=== PATIENT | male | born 1995 | race Caucasian/White ===

== ENCOUNTER 2023-07-02 04:50 | Emergency (ER) | payer MEDICAID ==
[~2023-07-02] VITALS: Ht 167.6 cm; Wt 63.5 kg
[2023-07-02 05:10] VITALS: BP 149/95; PULSE 95; RESP 18; TEMP 97.9; O2SAT 100
[2023-07-02] MEDS ORDERED: ONDANSETRON 4 MG ODT PO ONE (06:25)
[2023-07-02] MEDS ORDERED: IBUPROFEN 600 MG TAB ONE (07:37)
[2023-07-02] MEDS ORDERED: IBUPROFEN 600 MG TAB PO ONE (07:40)
[2023-07-02 08:45] LABS: BASOPHILS % (AUTO) 0.5 % (0.0-2.0); EOSINOPHILS # (AUTO) 0.1 K/uL (0-0.4); EOSINOPHILS % (AUTO) 2.2 % (0.0-4.0); HEMATOCRIT 31.9 % (36-52); HEMOGLOBIN 11.4 g/dL (12.0-18.0); LYMPHOCYTES # (AUTO) 2.2 K/uL (2.0-11.5); LYMPHOCYTES % (AUTO) 33.1 % (20.5-51.1); MEAN CORPUSCULAR HEMOGLOBIN 30 pg (27-31); MEAN CORPUSCULAR HGB CONC 36 g/dL (33-37); MONOCYTES # (AUTO) 0.6 K/uL (0.8-1.0); MONOCYTES % (AUTO) 8.3 % (1.7-9.3); NEUTROPHILS # (AUTO) 3.7 K/uL (1.8-7.7); NEUTROPHILS % (AUTO) 55.9 % (42.2-75.2); PLATELET COUNT (AUTO) 302 K/uL (140-450); RED BLOOD CELL COUNT(AUTO) 3.79 MIL/uL (4.20-6.10); RED CELL DISTRIBUTION WIDTH 12.3 % (11.6-13.7); WHITE BLOOD COUNT (AUTO) 6.7 K/uL (4.8-10.8)
[2023-07-02 08:54] LABS: ANION GAP 8.3 (8-16); CALCIUM 8.9 mg/dL (8.5-10.1); CARBON DIOXIDE 30.8 mmol/L (21-32); CREATININE 1.8 mg/dL (0.6-1.3); POTASSIUM 4.1 mmol/L (3.5-5.1)
[2023-07-02 09:00] LABS: ALBUMIN 3.6 g/dL (3.4-5.0); BILIRUBIN,DIRECT 0.1 mg/dL (0.0-0.3); TOTAL BILIRUBIN 0.2 mg/dL (0.0-1.0); TOTAL PROTEIN, SERUM 8.4 g/dL (6.4-8.2)
== END 2023-07-02 11:26 | disposition left against medical advice (07) ==
LOC: MED 04:50
DX: R07.9 Chest pain, unspecified (principal); R10.11 Right upper quadrant pain; R11.2 Nausea with vomiting, unspecified; E11.9 Type 2 diabetes mellitus without complications
CPT/HCPCS: 36415; 71046; 76705; 80048; 80076; 83690; 84484; 85025; 93005; 99285; Q0092; Q0162